=== PATIENT | female | born 1985 | race Caucasian/White ===

== ENCOUNTER 2017-02-13 18:29 | Emergency (ER) ==
[2017-02-13 18:35] VITALS: BP 136/88; TEMP 97.5; BMI 38.0
[2017-02-13] MEDS ORDERED: TORADOL IM STA (19:35)
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
[2017-02-13] MEDS ORDERED: NORFLEX IM STA (20:30)
== END 2017-02-13 21:10 | disposition home or self-care (01) ==
LOC: ED 18:29
DX: S13.9XXA Sprain of joints and ligaments of unspecified parts of neck, initial encounter (principal); M54.5 Low back pain; R42 Dizziness and giddiness; V43.52XA Car driver injured in collision with other type car in traffic accident, initial encounter; F17.210 Nicotine dependence, cigarettes, uncomplicated
CPT/HCPCS: 96372; 99282